=== PATIENT | female | born 2000 | race Caucasian/White ===

== ENCOUNTER → 2021-01-15 11:04 | Outpatient (BNVA) | payer OTHER, SELFPAY | PROVIDERS: PCP Internal Medicine; Visit Provider Advanced Practice Midwife ==

== ENCOUNTER 2021-02-10 14:58 | Outpatient (REF) | payer OTHER, SELFPAY ==
[2021-02-12 11:41] LABS: HBc Num1 0.17 S/CO (0.00-0.79); HBsAGNum1 0.13 S/CO (0.00-0.99); Hepatitis B Core Antibody Nonreactive (Nonreactive); Hepatitis B Surface Antigen Negative (Negative)
[2021-02-13 08:39] LABS: HBS Num1 0.23 mIU/mL (0-7.99); ~Hepatitis B Surface Antibody NONREACTIVE (Nonreactive)
== END 2021-02-10 14:59 | disposition home or self-care (01) ==
LOC: HO.HMGCLDS 14:58
PROVIDERS: PCP Internal Medicine; Visit Provider Nurse Practitioner Family
DX: Z02.0 Encounter for examination for admission to educational institution (principal)
CPT/HCPCS: 36415; 86704; 86706; 86787; 87340

== ENCOUNTER 2021-02-17 09:46 | Outpatient (REF) | payer OTHER, SELFPAY ==
[2021-02-20 17:22] LABS: TS Negative Control Passed; TS Panel A 4; TS Panel B 12; TS Positive Control Passed; TSpotTB POSITIVE (SeeBelow)
== END 2021-02-17 09:47 | disposition home or self-care (01) ==
LOC: HO.WFDLDS 09:46
PROVIDERS: Visit Provider Nurse Practitioner Family
DX: Z11.1 Encounter for screening for respiratory tuberculosis (principal)
CPT/HCPCS: 36415; 86481

== ENCOUNTER 2021-02-17 15:15 | Outpatient (REF) | payer OTHER, SELFPAY ==
[2021-02-18 09:19] LABS: CT PCR NOT DETECTED (Not Detect.); NG PCR NOT DETECTED (Not Detect.)
== END 2021-02-17 15:16 | disposition home or self-care (01) ==
LOC: HO.LAB 15:15
PROVIDERS: Visit Provider Advanced Practice Midwife
DX: Z11.3 Encounter for screening for infections with a predominantly sexual mode of transmission (principal); Z20.2 Contact with and (suspected) exposure to infections with a predominantly sexual mode of transmission
CPT/HCPCS: 87491; 87591

== ENCOUNTER 2021-02-26 10:45 | Outpatient (REF) | payer OTHER, SELFPAY ==
--- NOTE | ~2021-02-26 | XR_ITS ---
EXAMINATION: XR CHEST CLINICAL INFORMATION: Positive TB test COMPARISON: None TECHNIQUE: Frontal view of the chest was obtained. FINDINGS: No significant abnormality is noted involving the heart, lungs, mediastinum, bony thorax or soft tissues. XR/XR chest 1V IMPRESSION: Unremarkable examination.
== END 2021-02-26 10:46 | disposition home or self-care (01) ==
LOC: HO.XRAY 10:45
PROVIDERS: PCP Internal Medicine; Visit Provider Nurse Practitioner Family
DX: R76.11 Nonspecific reaction to tuberculin skin test without active tuberculosis (principal)
CPT/HCPCS: 71045

== ENCOUNTER → 2021-07-07 11:57 | Outpatient (BNVA) | payer OTHER, SELFPAY | PROVIDERS: PCP Internal Medicine; Visit Provider Advanced Practice Midwife ==

== ENCOUNTER → 2021-07-28 08:36 | Outpatient (BNVA) | payer OTHER, SELFPAY | PROVIDERS: PCP Internal Medicine; Visit Provider Advanced Practice Midwife ==

== ENCOUNTER → 2021-08-04 10:49 | Outpatient (BNVA) | payer OTHER, SELFPAY | PROVIDERS: PCP Internal Medicine; Visit Provider Advanced Practice Midwife | DX: Z30.013 Encounter for initial prescription of injectable contraceptive (principal) | CPT/HCPCS: 96372 ==

== ENCOUNTER → 2022-01-15 09:04 | Outpatient (BNVA) | payer OTHER, SELFPAY | PROVIDERS: PCP Internal Medicine; Visit Provider Advanced Practice Midwife | DX: Z30.013 Encounter for initial prescription of injectable contraceptive (principal) | CPT/HCPCS: 96372 ==

== ENCOUNTER 2022-01-26 14:37 | Outpatient (REF) | payer OTHER, SELFPAY ==
[2022-01-27 03:06] LABS: CT PCR DETECTED (Not Detect.); NG PCR NOT DETECTED (Not Detect.)
[2022-01-27 09:15] LABS: BV Int Neg Control Negative (Negative); BV Int Pos Control Positive (Positive)
== END 2022-01-26 14:38 | disposition home or self-care (01) ==
LOC: HO.LAB 14:37
PROVIDERS: Visit Provider Advanced Practice Midwife
DX: Z11.3 Encounter for screening for infections with a predominantly sexual mode of transmission (principal)
CPT/HCPCS: 87480; 87491; 87510; 87591; 87660

== ENCOUNTER 2022-03-19 12:16 | Outpatient (REF) | payer OTHER, SELFPAY ==
[2022-03-22 03:42] LABS: ~Hepatitis B Surface Antibody REACTIVE (Nonreactive); ~Hepatitis C Antibody Nonreactive (Nonreactive)
[2022-03-23 21:06] LABS: TS Negative Control Passed; TS Panel A 2; TS Panel B 1; TS Positive Control Passed; TSpotTB Negative (Negative)
== END 2022-03-19 12:17 | disposition home or self-care (01) ==
LOC: HO.MANLDS 12:16
PROVIDERS: Visit Provider Physician Assistant
DX: Z11.1 Encounter for screening for respiratory tuberculosis (principal)
CPT/HCPCS: 36415; 86481; 86706; 86803

== ENCOUNTER 2022-04-02 08:42 | Outpatient (REF) | payer OTHER, SELFPAY ==
[2022-04-02 15:11] LABS: CT PCR NOT DETECTED (Not Detect.); NG PCR NOT DETECTED (Not Detect.)
== END 2022-04-02 08:43 | disposition home or self-care (01) ==
LOC: HO.LAB 08:42
PROVIDERS: Visit Provider Advanced Practice Midwife
DX: Z30.42 Encounter for surveillance of injectable contraceptive (principal); Z20.2 Contact with and (suspected) exposure to infections with a predominantly sexual mode of transmission
CPT/HCPCS: 87491; 87591; 96372

== ENCOUNTER → 2023-02-10 14:48 | Outpatient (BNVA) | payer OTHER, SELFPAY | PROVIDERS: PCP Internal Medicine; Visit Provider Advanced Practice Midwife | DX: Z30.42 Encounter for surveillance of injectable contraceptive (principal) | CPT/HCPCS: 96372 ==

== ENCOUNTER 2023-02-24 12:51 | Outpatient (REF) | payer OTHER, SELFPAY ==
[2023-02-25 11:35] LABS: CT PCR NOT DETECTED (Not Detect.); NG PCR NOT DETECTED (Not Detect.)
== END 2023-02-24 12:52 | disposition home or self-care (01) ==
LOC: HO.LNP 12:51
PROVIDERS: PCP Internal Medicine; Visit Provider Advanced Practice Midwife
DX: Z01.419 Encounter for gynecological examination (general) (routine) without abnormal findings (principal); Z20.2 Contact with and (suspected) exposure to infections with a predominantly sexual mode of transmission
CPT/HCPCS: 0353U; 88142

== ENCOUNTER 2023-02-24 12:51 | Outpatient (AMB) | payer OTHER, SELFPAY ==
--- NOTE | 2023-02-24 12:57 | A.OFFVIS_ITS ---
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 Scribed for MARGARET Waggoner by Debbie Bowens emergency medical tech, on 02/24/2023 at 1:11 pm EST. Knit Goods Washer Required: No Information Interpreted: non-clinical & clinical C D Area Supervisor: C D Area Supervisor Present (Aidyn) Allergies No Known Allergies Allergy (Verified 02/24/23 13:01) Is last menstrual period known: No (Depo) Post menopausal: No HPI HPI Comments History of Present Illness Details She is a premenopausal woman presenting for annual exam. She admits to eating healthy and tries to stay active with exercise. Currently sexually active. Uses Depo-Provera for BC, happy on Depo Provera. Denies vaginal itching and irritation. STD screening offered; she accepts. STD blood work offered; she declines. Denies family hx of breast, colon and ovarian cancer. This is her first pap smear. 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 Patient denies any contraindications to control such as tobacco use, migraines with aura, high blood pressure, liver disease, blood clotting disorders KEHINDE+, DVT, and Lupus. She denies smoking. 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[employer] Sexual orientation: Straight/Heterosexual Gender identity: Female Female Reproductive History Menstrual Age of Menarche: 15 Duration of menses: 3-5 days control method: progesterone injection Total pregnancies: 0 Physical Exam Vital Signs: Last Vital Signs BP 110/62 02/24/23 12:58 BMI result Body Mass Index 19.3 Const General: cooperative, healthy appearing, no acute distress, well developed and alert Orientation/consciousness: patient oriented x3 HEENT Head: Yes normal to inspection Eyes General: appearance normal, both eyes and all related structures Neck Neck: Yes normal visual inspection Thyroid: Thyroid normal Chest Chest palpation & inspection: normal inspection of the chest Breast/axilla inspection: normal inspection of the breasts (no puckering, dimpling, peau de orange, retraction, discharge, masses) Breast/axilla palpation: normal palpation of the breasts Resp Effort & Inspection: normal respiratory effort GI Inspection: Yes normal to inspection Palpation (GI): Soft to palpation (to palpation) Rectal Exam - Female: deferred General: Yes bladder normal to inspection External Female Exam: normal external appearance and normal appearance of the urethra Speculum Exam - Vagina: normal appearance of the vagina, normal palpation and normal vaginal discharge Speculum Exam - Cervix: normal appearance of the cervix and normal palpation Bimanual exam- vagina & uterus: normal palpation and normal palpation Bimanual Exam- Adnexa, other: normal adnexae and no masses Skin General skin exam: no rashes or lesions noted Neuro General: patient oriented x3 Cognition (Neuro): normal cognition Extrem General: Yes normal to inspection Psych Attitude: cooperative Thought process: Normal thought process present Assessment & Plan Assessment & Plan (1) Encounter for well woman exam: Code(s): Z01.419 - Encounter for gynecological examination (general) (routine) without abnormal findings Plan: Discussed: Current recommendations for pap smears per ASCCP guidelines Breast awareness and periodic self breast exams. Maintaining a healthy lifestyle including a well balanced diet and routine exercise. BV testing and GC/CT panel done today. Await results and treat accordingly. 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 calcium/vit D in diet, weight bearing exercises. She was instructed to go to ER if she develops loss of vision, severe headache that does not resolve, chest pain, difficulty breathing, abdominal pain, or severe pain or tenderness in extremity or new breast lumps. She will call the office with any concerns. All of her questions and concerns were addressed to the best of my ability. RTO in one year for AG. (2) Potential exposure to STD: Code(s): Z20.2 - Contact with and (suspected) exposure to infections with a predominantly sexual mode of transmission (3) control counseling: Code(s): Z30.09 - Encounter for other general counseling and advice on contraception (4) Depot contraception: Code(s): Z30.42 - Encounter for surveillance of injectable contraceptive Orders: Orders CT NG by PCR Today Z20.2 - Contact with and (suspected) exposure to infections with a predominantly sexual mode of transmission Pap Smear Today Z01.419 - Encounter for gynecological examination (general) (routine) without abnormal findings Coding Level of Care Code Est Pt Prev Care 18-39y(66449) Diagnoses Encounter for well woman exam Z01.419 Potential exposure to STD Z20.2 control counseling Z30.09 Depot contraception Z30.42
[2023-02-24 12:58] VITALS: BP 110/62; BMI 19.3
== END 2023-02-24 13:29 | disposition home or self-care (01) ==
LOC: HO.HWS 12:51
PROVIDERS: PCP Internal Medicine; Visit Provider Advanced Practice Midwife
DX: Z01.419 Encounter for gynecological examination (general) (routine) without abnormal findings (principal); Z20.2 Contact with and (suspected) exposure to infections with a predominantly sexual mode of transmission
CPT/HCPCS: 99395

== ENCOUNTER 2023-03-15 11:00 | Outpatient (REF) | payer OTHER, SELFPAY ==
[2023-03-16 04:33] LABS: ~Hepatitis B Surface Antibody REACTIVE (Nonreactive)
[2023-03-17 17:24] LABS: TS Negative Control Passed; TS Panel A 0; TS Panel B 0; TS Positive Control Passed; TSpotTB Negative (Negative)
== END 2023-03-15 11:01 | disposition home or self-care (01) ==
LOC: HO.MANLDS 11:00
PROVIDERS: Visit Provider Physician Assistant
DX: Z01.84 Encounter for antibody response examination (principal)
CPT/HCPCS: 36415; 86481; 86706

== ENCOUNTER 2023-09-29 12:39 | Outpatient (AMB) | payer OTHER, SELFPAY ==
--- NOTE | 2023-09-29 13:04 | AM.OFFVISNUR ---
Intake Vital Signs 09/29/23 13:04 Height 5 ft 7 in Intake Visit Reasons: DEPO Allergies No Known Allergies Allergy (Verified 02/24/23 13:01) Nursing Note Fannie is here for her Depo-Provera inj. Her last depo-Provera inj was at [facility] on 07/14[facility]23. Pt brought documentation which was scanned into her chart. She denies any problems with the Depo_provera inj. Follow up in 12 wks. Office Procedures Depo Questionnaire If YES to any of the following questions, please consult a provider. Date of last injection: 07/12/23 Date of last gynecology exam: 02/24/23 Menstrual pattern since last injection has been: Not Applicable Irregular bleeding?: No Breast lumps or other breast changes?: No Changes in weight or appetite?: No Depression or changes in mood?: No Abnormal hair growth or loss?: No Skin problems (rash, acne, discoloration)?: No Pain at the injection site?: No Headaches?: No Nervousness?: No Abdominal pain or cramping?: No Dizziness or nausea?: No Fatigue or weakness?: No Decrease in sexual drive?: No Chest pain or shortness of breath?: No Swelling in arms or legs?: No Form completed by?: Emerita Cha LPN Office Meds Depo-Provera 150 mg/mL intramuscular syringe Performing Provider: Shilpa Cintron CNM Performing Location[place] [facility] [place] [facility] Administered by: Olga Cha LPN on 09/29/23 13:04 Dose Route Admin Location Dispensed Lot Number Expiration Date [facility] Information Security Associate 150 mg IM Left deltoid 1 mL [id number] 11/05/25 20986-719-76 [facility] Coding Level of Care Code Established Pt Est Pt Level 1 (23568) Patient Type Established History Problem Focused Exam Problem Focused Medical Decision Making Straight Forward Time Spent (min) 20 Assessment & Plan Assessment & Plan Orders: Orders AMB Medroxyprogesterone Injection Patient Supplied Today Z30.019 - Encounter for initial prescription of contraceptives, unspecified
== END 2023-09-29 12:52 | disposition home or self-care (01) ==
LOC: HO.HWS 12:40
PROVIDERS: PCP Internal Medicine; Visit Provider Advanced Practice Midwife
DX: Z30.019 Encounter for initial prescription of contraceptives, unspecified (principal)

== ENCOUNTER → 2023-09-29 12:39 | Outpatient (BNVA) | payer OTHER, SELFPAY | PROVIDERS: PCP Internal Medicine; Visit Provider Advanced Practice Midwife | DX: Z30.42 Encounter for surveillance of injectable contraceptive (principal) | CPT/HCPCS: 96372; 99211; J1050 ==

== ENCOUNTER 2023-12-21 10:46 | Outpatient (AMB) | payer OTHER, SELFPAY ==
[2023-12-21 11:24] VITALS: BMI 18.2
--- NOTE | 2023-12-21 11:24 | AM.OFFVISNUR ---
Intake Vital Signs 12/21/23 11:24 Height 5 ft 7 in Weight 52.673 kg BMI 18.2 Intake Visit Reasons: DEPO Allergies No Known Allergies Allergy (Verified 02/24/23 13:01) Nursing Note Fannie is here for her scheduled Depo-Provera inj. 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 Pt has AG scheduled for February 2024. Follow up in 12 weeks for next inj. Office Procedures Depo Questionnaire If YES to any of the following questions, please consult a provider. Date of last injection: 09/29/23 Date of last menstrual period: 12/07/23 Date of last gynecology exam: 02/24/23 Menstrual pattern since last injection has been: Light Irregular bleeding?: No Breast lumps or other breast changes?: No Changes in weight or appetite?: No Depression or changes in mood?: No Abnormal hair growth or loss?: No Skin problems (rash, acne, discoloration)?: No Pain at the injection site?: No Headaches?: No Nervousness?: No Abdominal pain or cramping?: No Dizziness or nausea?: No Fatigue or weakness?: No Decrease in sexual drive?: No Chest pain or shortness of breath?: No Swelling in arms or legs?: No Any other problems or concerns?: none voiced Form completed by?: Emerita toribio LPN Office Meds Depo-Provera 150 mg/mL intramuscular syringe Performing Provider: Shilpa Cintron CNM Performing Location: [facility] [place] [facility] Administered by: Olga Toribio LPN on 12/21/23 11:32 Dose Route Admin Location Dispensed Lot Number Expiration Date [facility] Screening Nurse 150 mg IM left deltoid 1 mL [id number] 08/07/25 [address]-2 [facility] Coding Level of Care Code Established Pt Est Pt Level 1 (07989) Patient Type Established History Problem Focused Exam Problem Focused Medical Decision Making Straight Forward Time Spent (min) 20 Assessment & Plan Assessment & Plan Orders: Orders AMB Medroxyprogesterone Injection Patient Supplied Today Z30.019 - Encounter for initial prescription of contraceptives, unspecified Medications: New Depo-Provera (medroxyprogesterone) 150 mg IM ONCE 1 mL 0RF NS Z30.019 - Encounter for initial prescription of contraceptives, unspecified
== END 2023-12-21 11:03 | disposition home or self-care (01) ==
PROVIDERS: PCP Internal Medicine; Visit Provider Advanced Practice Midwife
DX: Z30.019 Encounter for initial prescription of contraceptives, unspecified (principal)

== ENCOUNTER → 2023-12-21 10:46 | Outpatient (BNVA) | payer OTHER, SELFPAY | PROVIDERS: PCP Internal Medicine; Visit Provider Advanced Practice Midwife | DX: Z30.42 Encounter for surveillance of injectable contraceptive (principal) | CPT/HCPCS: 96372; 99211; J1050 ==

== ENCOUNTER 2024-03-14 10:37 | Outpatient (AMB) | payer OTHER, SELFPAY ==
[2024-03-14 11:20] VITALS: BMI 18.3
--- NOTE | 2024-03-14 11:20 | AM.OFFVISNUR ---
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 No c/o today, no new medical diagnoses, and no new medications. See Depo questionnaire. Pt tolerated injection well. She will schedule her next injection in 12 weeks. Pt is scheduled for AG 03/22/24. Pt verbalizes understanding and agrees with plan. No further questions. Office Procedures Depo Questionnaire If YES to any of the following questions, please consult a provider. Date of last injection: 12/21/23 Date of last gynecology exam: 02/24/23 Menstrual pattern since last injection has been: Not Applicable Irregular bleeding?: No Breast lumps or other breast changes?: No Changes in weight or appetite?: No Depression or changes in mood?: No Abnormal hair growth or loss?: No Skin problems (rash, acne, discoloration)?: No Pain at the injection site?: No Headaches?: No Nervousness?: No Abdominal pain or cramping?: No Dizziness or nausea?: No Fatigue or weakness?: No Decrease in sexual drive?: No Chest pain or shortness of breath?: No Swelling in arms or legs?: No Form completed by?: Judi De Anda RN Office Meds Depo-Provera 150 mg/mL intramuscular syringe Performing Provider: Shilpa Cintron CNM Performing Location: [facility] [place] [facility] Administered by: Judi De Anda on 03/14/24 11:23 Dose Route Admin Location Dispensed Lot Number Expiration Date [facility] [employer] 150 mg IM left deltoid 1 mL [id number] 10/05/25 [address]-5 [facility] Assessment & Plan Assessment & Plan Orders: Orders AMB Medroxyprogesterone Injection Patient Supplied Today Z30.42 - Encounter for surveillance of injectable contraceptive Medications: New Depo-Provera (medroxyprogesterone) 150 mg IM ONCE 1 mL 0RF NS Z30.42 - Encounter for surveillance of injectable contraceptive
== END 2024-03-14 11:04 | disposition home or self-care (01) ==
LOC: HO.HWS 10:37
PROVIDERS: PCP Internal Medicine; Visit Provider Advanced Practice Midwife
DX: Z30.42 Encounter for surveillance of injectable contraceptive (principal)

== ENCOUNTER → 2024-03-14 10:37 | Outpatient (BNVA) | payer OTHER, SELFPAY | PROVIDERS: PCP Internal Medicine; Visit Provider Advanced Practice Midwife | DX: Z30.42 Encounter for surveillance of injectable contraceptive (principal) | CPT/HCPCS: 96372; 99211; J1050 ==

== ENCOUNTER 2024-03-22 13:16 | Outpatient (AMB) | payer OTHER, SELFPAY ==
[2024-03-22 13:17] VITALS: BP 106/60; BMI 18.0
--- NOTE | 2024-03-22 13:17 | MHC.OFFVIS ---
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 Doing well with no concerns. She tries to eat healthy and stays active with exercise. No bleeding on Depo, doing well wants to continue. She denies any contraindications to control such as: migraines with aura, history of DVT or pulmonary emboli, high blood pressure, liver disease, thrombolic disorders, Lupus, +KEHINDE, breast cancer, or smoking. Currently is sexually active. She denies vaginal itching and irritation. STI screening offered; she accepts. Denies family history of breast, ovarian or colon cancer. Last pap smear 2022, negative. 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 Sexual orientation: Straight/Heterosexual Gender identity: Female Female Reproductive History Menstrual Age of Menarche: 15 control method: progesterone injection (Depo 03/14/24) Total pregnancies: 0 Date of last pap smear: 02/24/23 (neg) Review of Systems Const All systems reviewed & are unremarkable except as noted in HPI and below Reports as per HPI Eyes Reports no additional complaints ENT Reports no additional complaints Card Reports no additional complaints Resp Reports no additional complaints GI Reports as per HPI and Reports no additional complaints Reports as per HPI Musc Reports no additional complaints Skin/Breast Reports as per HPI Neuro Reports no additional complaints Psych Reports no additional complaints Endo Reports no additional complaints Benjamin/Lymph Reports no additional complaints Aller/Immun Reports no additional complaints Physical Exam Vital Signs: Last Vital Signs BP 106/60 03/22/24 13:17 BMI result Body Mass Index 18.0 Const General: cooperative, healthy appearing, no acute distress, well developed and alert Orientation/consciousness: patient oriented x3 HEENT Head: Yes normal to inspection Eyes General: appearance normal, both eyes and all related structures Neck Neck: Yes normal visual inspection Thyroid: Thyroid normal Chest Other: Small, rounded, nontender left breast lump 07:00 o'clock Chest palpation & inspection: normal inspection of the chest and other (no puckering, dimpling, peau de orange, retraction, discharge, masses) Breast/axilla inspection: normal inspection of the breasts Breast/axilla palpation: normal palpation of the breasts Resp Effort & Inspection: normal respiratory effort GI Inspection: Yes normal to inspection Palpation (GI): Soft to palpation Rectal Exam - Female: deferred Other: Tense with exam General: Yes bladder normal to palpation External Female Exam: normal external appearance and normal appearance of the urethra Speculum Exam - Vagina: normal appearance of the vagina, normal palpation and normal vaginal discharge Speculum Exam - Cervix: normal appearance of the cervix and normal palpation Bimanual exam- vagina & uterus: normal bimanual exam, normal palpation, uterine size normal, bladder normal to palpation, normal palpation and non-tender Bimanual Exam- Adnexa, other: no masses Skin General skin exam: no rashes or lesions noted Rashes: no rashes Neuro General: patient oriented x3 Cognition (Neuro): normal cognition Extrem General: Yes normal to inspection Psych Attitude: cooperative Thought process: Normal thought process present Assessment & Plan Assessment & Plan (1) Encounter for well woman exam with routine gynecological exam: Code(s): Z01.419 - Encounter for gynecological examination (general) (routine) without abnormal findings Category: Medical (2) Surveillance for Depo-Provera contraception: Code(s): Z30.42 - Encounter for surveillance of injectable contraceptive Category: Medical (3) Breast lump on left side at 7 o'clock position: Code(s): N63.24 - Unspecified lump in the left breast, lower inner quadrant Plan Discussed: Current recommendations for pap smears per ASCCP guidelines. Breast awareness and periodic breast exams. Ultrasound for left breast lump at 07:00 o'clock, follow up pending results. Variations in breast findings, causes. Maintain a healthy lifestyle including a well balanced diet and routine exercise. Long-term Depo use and effects on bone density, recommended continued weight-bearing exercise adequate dietary sources of calcium, when discontinuing Depo-Provera bone density usually returns to baseline. Warnings for Depo and when to notify the office or discontinue use. Use condoms for STI and prevention. Declines STD blood work. Patient verbalizes understanding and agrees to the plan of care. She was given opportunity to ask questions and all questions were answered to the best of my ability. 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 This note is constructed using voice recognition software. While every effort has been made to ensure accuracy, planning assistant errors may have been included. Orders: Orders CT NG by PCR Today Z20.2 - Contact with and (suspected) exposure to infections with a predominantly sexual mode of transmission US breast LT complete Today N63.24 - Unspecified lump in the left breast, lower inner quadrant Medications: Refilled medroxyprogesterone (Depo-Provera) 150 mg IM [id number] 1 mL 4RF Coding Level of Care Code Est Pt Prev Care 18-39y(46594) Diagnoses Encounter for well woman exam with routine gynecological exam Z01.419 Surveillance for Depo-Provera contraception Z30.42 Breast lump on left side at 7 o'clock position N63.24
== END 2024-03-22 14:06 | disposition home or self-care (01) ==
PROVIDERS: PCP Internal Medicine; Visit Provider Advanced Practice Midwife
DX: Z01.419 Encounter for gynecological examination (general) (routine) without abnormal findings (principal); Z30.42 Encounter for surveillance of injectable contraceptive; N63.24 Unspecified lump in the left breast, lower inner quadrant
CPT/HCPCS: 99395

== ENCOUNTER 2024-03-22 13:16 | Outpatient (REF) | payer OTHER, SELFPAY ==
[2024-03-22 17:43] LABS: CT PCR NOT DETECTED (Not Detect.); NG PCR NOT DETECTED (Not Detect.)
== END 2024-03-22 13:17 | disposition home or self-care (01) ==
LOC: HO.LNP 13:16
PROVIDERS: PCP Internal Medicine; Visit Provider Advanced Practice Midwife
DX: Z20.2 Contact with and (suspected) exposure to infections with a predominantly sexual mode of transmission (principal)
CPT/HCPCS: 87491; 87591

== ENCOUNTER 2024-04-04 12:51 | Outpatient (REF) | payer OTHER, SELFPAY ==
--- NOTE | ~2024-04-04 | US_ITS ---
EXAMINATION: US DIAGNOSTIC ULTRASOUND BREAST, LEFT CLINICAL INFORMATION: Palpable lump 7:00 axis felt by patient's clinician. 23-year-old female. COMPARISON: None available. TECHNIQUE: Ultrasound of the left breast is performed with real-time jones scale imaging and color Doppler. Attention was given to the lower inner quadrant to include the area of palpable concern. FINDINGS: There is dense breast tissue present. There is no suspicious mass, suspicious shadowing, architectural distortion, or cystic abnormality identified. Only normal dense breast tissue is identified in the lower inner quadrant. Results are provided to the patient at time of visit by the technologist. US/US breast LT limited mamm only IMPRESSION: No findings suspicious for malignancy left breast. No ultrasonographic correlate to the region of palpable concern 7:00 axis. Recommend clinical management and follow-up. ASSESSMENT: BI-RADS 1: Negative RECOMMENDATION: 1. Patient should be managed based on the clinical impression. 2. Otherwise, routine annual screening mammography at age 41. This patient's information was entered into a reminder system with a target due date for their next mammogram. Electronically signed by: Jackson Hutchins MD 04/04/2024 02:07 PM EDT
== END 2024-04-04 12:52 | disposition home or self-care (01) ==
LOC: HO.MAMMO 12:51
PROVIDERS: PCP Internal Medicine; Visit Provider Advanced Practice Midwife
DX: N63.24 Unspecified lump in the left breast, lower inner quadrant (principal)
CPT/HCPCS: 76642

== ENCOUNTER → 2024-04-04 13:00 | Outpatient (BNV) | payer OTHER, SELFPAY | PROVIDERS: PCP Internal Medicine; Visit Provider Radiology Diagnostic Radiology | DX: N63.24 Unspecified lump in the left breast, lower inner quadrant (principal) | CPT/HCPCS: 76642; 77065 ==

== ENCOUNTER 2024-05-09 10:21 | Outpatient (AMB) | payer OTHER, SELFPAY ==
--- NOTE | 2024-05-09 10:30 | MHC.OFFVIS ---
Vital Signs 05/09/24 10:31 Height 5 ft 7 in Weight 117 lb 6 oz BMI 18.4 BP 102/68 Blood Pressure Location Rt brachial Position Sitting Intake Visit Reasons: Room 4 , breast US follow up Technical Support Intern Required: No Allergies No Known Allergies Allergy (Verified 03/22/24 13:17) Is last menstrual period known: Yes (none due to depo) Post menopausal: No Patient : No HPI Comments Details: Patient is here today for a follow up breast ultrasound due to a previous exam noted a small breast lump on the left side at 07:00 o'clock. She does not feel anything in that area today, denies any breast changes or pain. 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 Sexual orientation: Straight/Heterosexual Gender identity: Female Female Reproductive History Menstrual Age of Menarche: 15 control method: progesterone injection Total pregnancies: 0 Review of Systems Const All systems reviewed & are unremarkable except as noted in HPI and below Reports no additional complaints Skin/Breast Reports system reviewed and no additional complaints, except as documented and Reports as per HPI Physical Exam Vital Signs: Last Vital Signs BP 102/68 05/09/24 10:31 BMI result Body Mass Index 18.4 Const General: cooperative, healthy appearing and no acute distress Chest Breast/axilla inspection: normal inspection of the breasts and normal inspection of the axillae Breast/axilla palpation: normal palpation of the breasts Skin General skin exam: no rashes or lesions noted Results Reviewed Results Reviewed: [facility] [address] [place] [address] Ultrasound Report Signed Patient: Fannie Singh MR#: [id number] : 2000 Acct:[id number] Age/Sex: 23 / F ADM Date: 04/04/24 Loc: HO.MAMMO Attending Dr: Shilpa Cintron CNM Ordering Physician: Shilpa Cintron CNM Date of Service: 04/04/24 Procedure(s): US breast LT limited mamm only Accession Number(s): [id number] cc: Nito Jackson MD; Shilpa Cintron CNM~ EXAMINATION: US DIAGNOSTIC ULTRASOUND BREAST, LEFT CLINICAL INFORMATION: Palpable lump 7:00 axis felt by patient's clinician. 23-year-old female. COMPARISON: None available. TECHNIQUE: Ultrasound of the left breast is performed with real-time jones scale imaging and color Doppler. Attention was given to the lower inner quadrant to include the area of palpable concern. FINDINGS: There is dense breast tissue present. There is no suspicious mass, suspicious shadowing, architectural distortion, or cystic abnormality identified. Only normal dense breast tissue is identified in the lower inner quadrant. Results are provided to the patient at time of visit by the technologist. US/US breast LT limited mamm only IMPRESSION: No findings suspicious for malignancy left breast. No ultrasonographic correlate to the region of palpable concern 7:00 axis. Recommend clinical management and follow-up. ASSESSMENT: BI-RADS 1: Negative RECOMMENDATION: 1. Patient should be managed based on the clinical impression. 2. Otherwise, routine annual screening mammography at age 41. This patient's information was entered into a reminder system with a target due date for their next mammogram. 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 Advised to just monitor for any breast pain or concerns. Depo appointment is due May 26 an annual exam scheduled for 2024. All of her questions and concerns were addressed to the best of my ability and shared decision making. She is agreeable to the plan of care. This note is constructed using voice recognition software. While every effort has been made to ensure accuracy, rn international errors may have been included. Coding Level of Care Code Est Pt Level 3 (82506) Diagnoses Encounter to discuss test results Z71.2
[2024-05-09 10:31] VITALS: BP 102/68; BMI 18.4
== END 2024-05-09 11:24 | disposition home or self-care (01) ==
PROVIDERS: PCP Internal Medicine; Visit Provider Advanced Practice Midwife
DX: Z71.2 Person consulting for explanation of examination or test findings (principal)
CPT/HCPCS: 99213

== ENCOUNTER → 2024-05-09 10:21 | Outpatient (BNVA) | payer OTHER, SELFPAY | PROVIDERS: PCP Internal Medicine; Visit Provider Advanced Practice Midwife ==

== ENCOUNTER 2024-05-30 08:51 | Outpatient (AMB) | payer OTHER, SELFPAY ==
[2024-05-30 09:15] VITALS: BMI 18.5
--- NOTE | 2024-05-30 09:15 | AM.OFFVISNUR ---
Vital Signs 05/30/24 09:15 Height 5 ft 7 in Weight 118 lb 2 oz BMI 18.5 Intake Visit Reasons: depo Allergies No Known Allergies Allergy (Verified 03/22/24 13:17) Nursing Note Fannie is here today for her scheduled Depo-Provera inj. No c/o follow up in 12 wks. Office Procedures Depo Questionnaire If YES to any of the following questions, please consult a provider. Date of last injection: 03/14/24 Date of last gynecology exam: 03/22/24 Menstrual pattern since last injection has been: Not Applicable Irregular bleeding?: No Breast lumps or other breast changes?: No Changes in weight or appetite?: No Depression or changes in mood?: No Abnormal hair growth or loss?: No Skin problems (rash, acne, discoloration)?: No Pain at the injection site?: No Headaches?: No Nervousness?: No Abdominal pain or cramping?: No Dizziness or nausea?: No Fatigue or weakness?: No Decrease in sexual drive?: No Chest pain or shortness of breath?: No Swelling in arms or legs?: No Form completed by?: Emerita Cha LPN Office Meds Depo-Provera 150 mg/mL intramuscular syringe Performing Provider: Shilpa Cintron CNM Performing Location[place] [facility] [place] [facility] Administered by: Olga Cha LPN on 05/30/24 09:15 Dose Route Admin Location Dispensed Lot Number Expiration Date [facility] Bone Drier Operator 150 mg IM rt. deltoid 1 mL [id number] 01/05/26 56698-110-24 Espinoza Assessment & Plan Assessment & Plan Orders: Orders AMB Medroxyprogesterone Injection Patient Supplied Today Z30.42 - Encounter for surveillance of injectable contraceptive Medications: New Depo-Provera (medroxyprogesterone) 150 mg IM ONCE 1 mL 0RF NS Z30.42 - Encounter for surveillance of injectable contraceptive
== END 2024-05-30 09:02 | disposition home or self-care (01) ==
LOC: HO.HWS 08:51
PROVIDERS: PCP Internal Medicine; Visit Provider Advanced Practice Midwife
DX: Z30.42 Encounter for surveillance of injectable contraceptive (principal)

== ENCOUNTER → 2024-05-30 08:51 | Outpatient (BNVA) | payer OTHER, SELFPAY | PROVIDERS: PCP Internal Medicine; Visit Provider Advanced Practice Midwife | DX: Z30.42 Encounter for surveillance of injectable contraceptive (principal) | CPT/HCPCS: 96372; 99211; J1050 ==

== ENCOUNTER 2024-08-21 08:48 | Outpatient (AMB) | payer OTHER, SELFPAY ==
[2024-08-21 09:09] VITALS: BMI 18.7
--- NOTE | 2024-08-21 09:09 | AM.OFFVISNUR ---
Vital Signs 08/21/24 09:09 Height 5 ft 7 in Weight 119 lb 2 oz BMI 18.7 Intake Visit Reasons: DEPO Allergies No Known Allergies Allergy (Verified 03/22/24 13:17) Nursing Note Fannie is here today for her scheduled Depo-provera INJ. No c/o follow up in 12 wks for next inj. Office Procedures Depo Questionnaire If YES to any of the following questions, please consult a provider. Date of last injection: 05/30/24 Date of last gynecology exam: 03/22/24 Menstrual pattern since last injection has been: Not Applicable Irregular bleeding?: No Breast lumps or other breast changes?: No Changes in weight or appetite?: No Depression or changes in mood?: No Abnormal hair growth or loss?: No Skin problems (rash, acne, discoloration)?: No Pain at the injection site?: No Headaches?: No Nervousness?: No Abdominal pain or cramping?: No Dizziness or nausea?: No Fatigue or weakness?: No Decrease in sexual drive?: No Chest pain or shortness of breath?: No Swelling in arms or legs?: No Any other problems or concerns?: none voiced Form completed by?: Emerita Cha LPN Office Meds Depo-Provera 150 mg/mL intramuscular syringe Performing Provider: Shilpa Cintron CNM Performing Location: [facility] [place] [facility] Administered by: Olga Cha LPN on 08/21/24 09:09 Dose Route Admin Location Dispensed Lot Number Expiration Date [facility] Focusing Machine Operator 150 mg IM 1 mL [id number] 04/07/26 36971-239-57 Espinoza Assessment & Plan Assessment & Plan Orders: Orders AMB Medroxyprogesterone Injection Patient Supplied Today Z30.42 - Encounter for surveillance of injectable contraceptive Medications: New Depo-Provera (medroxyprogesterone) 150 mg IM ONCE 1 mL 0RF NS Z30.42 - Encounter for surveillance of injectable contraceptive
--- OUTSIDE RECORDS SUMMARY | 2024-08-21 09:13 | XMS_ITS | Data Portability ---
Author Organization [facility], Home Service Address [address] [place] [address] Assessment No assessment recorded. Plan of Treatment Reminders Order Date Submit Date Provider Last Modified By Organization Details Last Modified Time Details Appointments None record ed. Lab None record ed. Referral None record ed. Procedures None record ed. Surgeries None record ed. Imaging None record ed. Medication Orders None record ed. Patient TargetsNo targets recorded. Patient InstructionsNo instructions recorded. Reason for Referral None Reported. Results Created Date Observation Date Name Description Value Unit Range Abnormal Flag Note LastModifiedBy Organization Detail LastModifiedTime 04/04/2004/04/2024 US, nancy mackey No observ ation record ed. [email or web address] [facility]'[address] [place], [address], 04/04/2024 14:54:46 Result Notes None recorded. Problems Name Problem SNOMED Code Status Onset Date Resolution Date Notes Provider Name and Address Organization Details Recorded Time Palpitat ions 19069324 Active 2020 Hannah sauceda [facility] 09:46:11 Orthosta tic intolera nce 456716074 Active 2020 Hannah sauceda [facility] 09:46:44 Otitis media 26133358 Completed 202003/31/2021 PILY LINCOLN [address] [place], [address], [facility] 11:03:38 Problem Notes None recorded. Procedures Surgical History Date Name Laterality Status Provider Name and Address Organization Details Recorded Time 02/28/20 extraction of wisdom tooth completed PILY LINCOLN [address] [facility], [place], [address], [place] [facility] 03/31/2021 10:44:57 Imaging Results Imaging Date Name Status LastModified by Mary Ann cliffordion Details LastModified Time 04/04/2024 US, breast completed [email or web address] [address] [place], [address], 04/04/2024 14:54:46 Procedure Notes None recorded. Medical Equipment None Reported. Allergies No known drug allergies Medications Name Sig Start Date Stop Date Status Note LastModified by Organization Details LastModified Time Xulane 150 mcg-35 mcg/24 hr transdermal patch APPLY 1 PATCH TOPICALLY ONCE A WEEK FOR 3 WEEKS active Not Available Not Available No t Available Vitals Date Recorded Body height Body mass index (BMI) Percentile per age and sex Body mass index (BMI) Body weight Heart rate Oxygen saturation Oxygen saturation in Arterial blood by Pulse oximetry Systolic blood pressure Diastolic blood pressure Provider Name and Address Organization Details Last Updated DateTime 170.18 cm 8 % 18.3 kg/m2 63257.3 1 g 74 /min 96 % 96 % 100 mm[Hg] 60 mm[Hg] Mable Giraldo [facility] 10:29:43 Social History Question Answer Notes LastModified by Mary Annat ion Details LastModified Time Tobacco Smoking Status [facility] 03/25/2021 09:47:29 What Is Your Level Of Alcohol Consumption? None Information not available 03/31/2021 What Is Your Level Of Caffeine Consumption? Moderate Information not available 03/31/2021 What Was The Date Of Your Most Recent Tobacco Screening? 03/31/2021 [email or web address] Information not available 03/31/2021 Do You Use Any Illicit Or Recreational Drugs? No Information not available 03/31/2021 Do You Or Have You Ever Used Any Other Forms Of Tobacco Or Nicotine? No Information not available 03/31/2021 Sex: Unknown Functional Status Question Answer Note LastModified by Organization D etails LastModified Time What is your exercise level? Moderate Information not available 03/31/2021 Mental Status None recorded. Family History Relationship Description Onset Age of this Age Resolved Age Notes LastModified by Organization Details LastModified Time Paternal Grandmother Arthritis [email or web address] Not available 11:33:43 Maternal Grandfather Malignant neoplastic disease [email or web address] Not available 2020 11:34:00 Medical History No medical history recorded. Gynecological History Statement/Question Response Age at Menarche 15 Date of LMP 03/17/2021 Obstetrics History GPAL:G 0 P 0 0 0 0 Immunizations Vaccine Type Date Status Note Provider Nam e and Address Organization Details Recorded Time COVID-19, mRNA, LNP-S, PF, 30 mcg/0.3 mL dose 12/28/2020 completed Mable sauceda [facility] 03/31/2021 10:28:09 COVID-19, mRNA, LNP-S, PF, 30 mcg/0.3 mL dose 01/18/2021 completed Mable sauceda [facility] 03/31/2021 10:28:14 Past Encounters Encounter ID Performer Location Encounter Start Date Encounter Closed Date Diagnosis/Indication Diagnosis SNOMED-CT Code Diagnosis ICD10 Code Diagnosis Note [id number] PILY LINCOLN [facility] [address] [facility] [address] 03/31/2021 10:17:35 03/31/2021 14:17:47 Tuberculosis screening 309074243 Z11.1 positive plant, negative XRletter written for college Active or passive immunization 610690525 Z23 up to date per records, need to be added to our system Palpitations 02282848 R0 0.2 stable Health Concerns Section Related Observation LastModified by Organization Detai ls LastModified Time None Recorded Concern Status LastModified by Organization Details LastModified Time None Recorded Advance Directives Directive None Recorded Payers Encounter Date Sequence Insurance Name Policy Number Policy Villa Covered Member ID Villa Member ID Guarantor Name 03/31/2021 1 [employer] [place]) [id number] Barbra Singh [id number] Fannie Singh Notes Date Note Type Note Provider Name a nd Address Organization Details Recorded Time 1 text/html NPV the patient reports that she is going to nursing schoolthe patient had a positive TB test prior and had negative chest XR on 02/26/21, showed me the result on her portal on her phone, not in her records sent for paediatricsthe patient [place] [facility] can look up the records through our office her school states that need a medical clearance note for symptomsprovided a letter reviewing all symptoms and necessary screening questions associated with TB in students and healthcare workers note was printed and also sent to her portal the patient and I also reviewed all relevant health information in her medical historyeverything updated in her chart 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
== END 2024-08-21 10:19 | disposition home or self-care (01) ==
LOC: HO.HWS 08:48
PROVIDERS: PCP Internal Medicine; Visit Provider Advanced Practice Midwife
DX: Z30.42 Encounter for surveillance of injectable contraceptive (principal)

== ENCOUNTER → 2024-08-21 08:48 | Outpatient (BNVA) | payer OTHER, SELFPAY | PROVIDERS: PCP Internal Medicine; Visit Provider Advanced Practice Midwife | DX: Z30.42 Encounter for surveillance of injectable contraceptive (principal) | CPT/HCPCS: 96372; 99211; J1050 ==

== ENCOUNTER 2024-11-14 09:51 | Outpatient (AMB) | payer OTHER, SELFPAY ==
--- NOTE | 2024-11-14 10:29 | AM.OFFVISNUR ---
Vital Signs 11/14/24 10:30 Height 5 ft 7 in Weight 120 lb BMI 18.8 Intake Visit Reasons: DEPO Allergies No Known Allergies Allergy (Verified 03/22/24 13:17) Nursing Note Fannie is here today for her scheduled DEPO-Provera inj. She denies any problems or concerns. AG scheduled for 03/26/25. follow up in 12 weeks for next inj. Office Procedures Depo Questionnaire If YES to any of the following questions, please consult a provider. Date of last injection: 08/21/24 Date of last gynecology exam: 03/22/24 Menstrual pattern since last injection has been: Not Applicable Irregular bleeding?: No Breast lumps or other breast changes?: No Changes in weight or appetite?: No Depression or changes in mood?: No Abnormal hair growth or loss?: No Skin problems (rash, acne, discoloration)?: No Pain at the injection site?: No Headaches?: No Nervousness?: No Abdominal pain or cramping?: No Dizziness or nausea?: No Fatigue or weakness?: No Decrease in sexual drive?: No Chest pain or shortness of breath?: No Swelling in arms or legs?: No Form completed by?: Emerita Cha LPN Office Meds Depo-Provera 150 mg/mL intramuscular syringe Performing Provider: Shilpa Cintron CNM Performing Location: [facility] [place] [facility] Administered by: Olga Cha LPN on 11/14/24 10:30 Dose Route Admin Location Dispensed Lot Number Expiration Date [facility] Law Librarian 150 mg IM lt. deltoid 1 mL [id number] 11/05/25 36032-343-16 MYLAN Assessment & Plan Assessment & Plan Orders: Orders AMB Medroxyprogesterone Injection Patient Supplied Today Z30.42 - Encounter for surveillance of injectable contraceptive Medications: New Depo-Provera (medroxyprogesterone) 150 mg IM ONCE 1 mL 0RF NS Z30.42 - Encounter for surveillance of injectable contraceptive Coding Level of Care Code Established Pt Est Pt Level 1 (11899) Patient Type Established History Problem Focused Exam Problem Focused Medical Decision Making Straight Forward Time Spent (min) 20
[2024-11-14 10:30] VITALS: BMI 18.8
--- OUTSIDE RECORDS SUMMARY | 2024-11-14 10:50 | XMS_ITS | Data Portability ---
Author Organization [facility], Home Service Address [address] [place] [address] Assessment No assessment recorded. Plan of Treatment [...] mackey No observ ation record ed. [email or web address] [facility]'[address] [place], [address], 04/04/2024 14:54:46 Result Notes None recorded. Problems Name Problem SNOMED Code Status Onset Date Resolution Date Notes Provider Name and Address Organization Details Recorded Time Palpitat ions 50353194 Active 2020 Hannah sauceda [facility] 09:46:11 Orthosta tic intolera nce 954211195 Active 2020 Hannah sauceda [facility] 09:46:44 Otitis media 23173567 Completed 202003/31/2021 PILY LINCOLN [address] [place], [address], [facility] 11:03:38 Problem Notes None recorded. Procedures Surgical History Date Name Laterality Status Provider Name and Address Organization Details Recorded Time 02/28/20 extraction of wisdom tooth completed PILY LINCOLN [address] [facility], [place], [address], [place] [facility] 03/31/2021 10:44:57 Imaging Results Imaging Date Name Status LastModified by Mary Ann cliffordion Details LastModified Time 04/04/2024 US, breast completed [email or web address] [address] [place], [address], 04/04/2024 14:54:46 Procedure Notes None recorded. Medical [...] DateTime 170.18 cm 8 % 18.3 kg/m2 30294.3 1 g 74 /min 96 % 96 % 100 mm[Hg] 60 mm[Hg] Mable Giraldo [facility] 10:29:43 Social History Question Answer Notes LastModified by Mary Annat ion Details LastModified Time Tobacco Smoking Status [facility] 03/25/2021 09:47:29 What [...] mcg/0.3 mL dose 12/28/2020 completed Mable sauceda [facility] 03/31/2021 10:28:09 COVID-19, mRNA, LNP-S, PF, 30 mcg/0.3 mL dose 01/18/2021 completed Mable sauceda [facility] 03/31/2021 10:28:14 Past Encounters Encounter ID Performer Location Encounter Start Date Encounter Closed Date Diagnosis/Indication Diagnosis SNOMED-CT Code Diagnosis ICD10 Code Diagnosis Note [id number] PILY LINCOLN [facility] [address] [facility] [address] 03/31/2021 10:17:35 03/31/2021 14:17:47 Tuberculosis screening 437172715 Z11.1 positive plant, negative XRletter written for college Active or passive immunization 676935747 Z23 up to date per records, need to be added to our system Palpitations 25185830 R0 0.2 stable Health Concerns Section Related Observation LastModified by Organization Detai ls LastModified Time None Recorded Concern Status LastModified by Organization Details LastModified Time None Recorded Advance Directives Directive None Recorded Payers Encounter Date Sequence Insurance Name Policy Number Policy Villa Covered Member ID Villa Member ID Guarantor Name 03/31/2021 1 [employer] [place] ([facility]) [id number] Barbra Singh [id number] Fannie Singh Notes Date Note Type [...] paediatricsthe patient got the XR done from [facility], can look up the records through our [...] concerns today and doing well PILY LINCOLN [address] [place] [address], [place], [address], [facility] 03/31/2021 11:05:15 OBGyn Episode No OBEpisode recorded.
== END 2024-11-14 10:08 | disposition home or self-care (01) ==
LOC: HO.HWS 09:51
PROVIDERS: PCP Internal Medicine; Visit Provider Advanced Practice Midwife
DX: Z30.42 Encounter for surveillance of injectable contraceptive (principal)

== ENCOUNTER → 2024-11-14 09:51 | Outpatient (BNVA) | payer OTHER, SELFPAY | PROVIDERS: PCP Internal Medicine; Visit Provider Advanced Practice Midwife | DX: Z30.42 Encounter for surveillance of injectable contraceptive (principal) | CPT/HCPCS: 96372; 99211; J1050 ==

== ENCOUNTER 2025-02-07 10:48 | Outpatient (AMB) | payer OTHER, SELFPAY ==
[2025-02-07 11:07] VITALS: BMI 18.9
--- NOTE | 2025-02-07 11:07 | AM.OFFVISNUR ---
Vital Signs 02/07/25 11:07 Height 5 ft 7 in Weight 121 lb BMI 18.9 Intake Visit Reasons: DEPO Allergies No Known Allergies Allergy (Verified 03/22/24 13:17) Nursing Note Fannie is here today for her scheduled Depo-Provera inj. She denies any problems or concerns. Next AG 03/26/25. Pt to return for next Depo-Provera inj in 12 weeks. Office Procedures Depo Questionnaire If YES to any of the following questions, please consult a provider. Date of last injection: 11/14/24 Date of last gynecology exam: 03/22/24 Menstrual pattern since last injection has been: Not Applicable Irregular bleeding?: No Breast lumps or other breast changes?: No Changes in weight or appetite?: No Depression or changes in mood?: No Abnormal hair growth or loss?: No Skin problems (rash, acne, discoloration)?: No Pain at the injection site?: No Headaches?: No Nervousness?: No Abdominal pain or cramping?: No Dizziness or nausea?: No Fatigue or weakness?: No Decrease in sexual drive?: No Chest pain or shortness of breath?: No Swelling in arms or legs?: No Form completed by?: Emerita Cha LPN Office Meds Depo-Provera 150 mg/mL intramuscular syringe Performing Provider: Shilpa Cintron CNM Performing Location: [facility] [place] [facility] Administered by: Olga Cha LPN on 02/07/25 11:07 Dose Route Admin Location Dispensed Lot Number Expiration Date [facility] Hearing And Speech Assistant 150 mg IM lt. deltoid 1 mL [id number] 01/05/26 42435-452-35 MYLAN Total Dispensed Waste 1 mL 0 % Assessment & Plan Assessment & Plan Orders: Orders AMB Medroxyprogesterone Injection Patient Supplied Today Z30.42 - Encounter for surveillance of injectable contraceptive Coding Level of Care Code Established Pt Est Pt Level 1 (41124) Patient Type Established History Problem Focused Exam Problem Focused Medical Decision Making Straight Forward Time Spent (min) 20
--- OUTSIDE RECORDS SUMMARY | 2025-02-07 11:37 | XMS_ITS | Patient Health Record ---
Author Organization [facility] Address [address] [place] [address] Care Team Providers Care Security Researcher Name Role Phone Osmin Man Primary Care Provider UnaAmauri Harris Unavailable [phone] Reason For Referral No Information Problems Problem Type SNOMED Code ICD Code Onset Dates Problem Status W/U Status Risk Notes Problem Verruca plantaris (25175570) Verruca Plantaris (078.19) Active confirmed Problem Pain in limb (21002930) Pain in Limb (729.5) Active confirmed Plan Of Treatment Pending Test Test Name Order Date [id number], 1-14 12/13/2011 Insurance Providers Payer Name Payer Address Payer Phone Subscriber Number Group Number Insured Name Patient Relationship to Insured Coverage Start Date Coverage End Date Blue Benefits [address] [address] [place] [address] [id number] Barbra Singh [facility] Child - Insured has Financial Responsibility
--- OUTSIDE RECORDS SUMMARY | 2025-02-07 11:37 | XMS_ITS | Data Portability ---
Author Organization [facility] Internal Medicine, Telehealth Patient Home Address [address] [place] [address] Assessment No assessment recorded. Plan of Treatment [...] nancy mackey No observ ation record ed. [address] [place], [address], 04/04/2024 14:54:46 Result Notes None recorded. Problems Name Problem SNOMED Code Status Onset Date Resolution Date Notes Provider Name and Address Organization Details Recorded Time Palpitat ions 32905238 Active 2020 Hannah sauceda [facility] Internal Medicine 09:46:11 Orthosta tic intolera nce 219199964 Active 2020 Hannah sauceda [facility] Internal Medicine 09:46:44 Otitis media 18782389 Completed 202003/31/2021 PILY LINCOLN [address] [place], [address], [facility], [place], operated [facility] Internal Medicine 11:03:38 Problem Notes None recorded. Procedures Surgical History Date Name Laterality Status Provider Name and Address Organization Details Recorded Time 02/28/20 20 extraction of wisdom tooth completed PILY LINCOLN [address] [place] [address], [place], [address], [facility], [place], operated [facility] 03/31/2021 10:44:57 Imaging Results None recorded. Procedure Notes None recorded. Medical Equipment None Reported. Allergies No known drug allergies Medications Name Sig Start Date Stop Date Status Note LastModified by Organization Details LastModified Time Xulane 150 mcg-35 mcg/24 hr transdermal patch APPLY 1 PATCH TOPICALLY ONCE A WEEK FOR 3 WEEKS active Not Available Not Available No t Available Vitals Date Recorded Body height Body mass index (BMI) [Percentile] Per age and sex Body mass index (BMI) Body weight Heart rate Oxygen saturation Oxygen saturation in Arterial blood by Pulse oximetry Systolic And Diastolic Provider Name and Address Organization Details Last Updated DateTime 170.18 cm 8 % 18.3 kg/m2 58095.3 1 g 74 /min 96 % 96 % 100/60 mm[Hg] Mable Giraldo [facility] Internal Medicine 10:29:43 Social History Question Answer Notes LastModified by [employer] Details LastModified Time Tobacco Smoking Status Never Smoker [facility] 03/25/2021 09:47:29 What Is Your Level Of Caffeine Consumption? Moderate Information not available 03/31/2021 What Was The Date Of Your Most Recent Tobacco Screening? 03/31/2021 [email or web address] Information not available 03/31/2021 Sex: Unknown Functional Status Question Answer Note LastModified by [employer] Details LastModified Time Do you use any illicit or recreational drugs? No Information not available 03/31/2021 Do you or have you ever used any other forms of tobacco or nicotine? No Information not available 03/31/2021 What is your level of alcohol consumption? None Information not available 03/31/2021 What is your exercise level? Moderate Information [...] mcg/0.3 mL dose 12/28/2020 completed Mable sauceda [facility] Internal Medicine 03/31/2021 10:28:09 COVID-19, mRNA, LNP-S, PF, 30 mcg/0.3 mL dose 01/18/2021 completed Mable sauceda [facility] 03/31/2021 10:28:14 Past Encounters Encounter ID Performer Location Encounter Start Date Encounter Closed Date Diagnosis/Indication Diagnosis SNOMED-CT Code Diagnosis ICD10 Code Diagnosis Note [id number] Nito Jackson [facility] Internal Medicine [address] [facility] [address] 03/31/2021 10:17:35 03/31/2021 14:17:47 Tuberculosis screening 736795580 Z11.1 positive plant, negative XRletter written for college Active or passive immunization 463453623 Z23 up to date per records, need to be added to our system Palpitations 16302100 R0 0.2 stable Health Concerns Section Related Observation LastModified by Organization Detai ls LastModified Time None Recorded Concern Status LastModified by Organization Details LastModified Time None Recorded Advance Directives Directive None Recorded Payers Insurance Date Sequence Insurance Name Policy Number Policy Villa Covered Member ID Villa Member ID Guarantor Name 03/28/2021 1 [employer]UE [employer] OF [facility] [id number] Barbra Singh [id number] Fannie Singh Notes Date Note Type Note Provider Name a nd Address Organization Details Recorded Time text/html NPV 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
== END 2025-02-07 11:09 | disposition home or self-care (01) ==
PROVIDERS: PCP Internal Medicine; Visit Provider Advanced Practice Midwife
DX: Z30.42 Encounter for surveillance of injectable contraceptive (principal)

== ENCOUNTER → 2025-02-07 10:48 | Outpatient (BNVA) | payer OTHER, SELFPAY | PROVIDERS: PCP Internal Medicine; Visit Provider Advanced Practice Midwife | DX: Z30.013 Encounter for initial prescription of injectable contraceptive (principal) | CPT/HCPCS: 96372; 99211; J1050 ==

== ENCOUNTER 2025-05-01 13:42 | Outpatient (AMB) | payer OTHER, SELFPAY ==
--- NOTE | 2025-05-01 13:54 | A.OFFVIS_ITS ---
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 Currently on Depo-Provera wants to continue. She denies any contraindications to control such as: migraines with aura, history of DVT or pulmonary emboli, high blood pressure, liver disease, thrombolic disorders, Lupus, +KEHINDE, breast cancer, or smoking. Regular monthly menses. Currently is sexually active w/alf partner. She denies vaginal itching or irritation. STI screening offered; she accepts. She tries to eat healthy and stays active with exercise. Denies family history of breast, ovarian or colon cancer. Last pap smear 2022, negative. 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 Sexual orientation: Straight/Heterosexual Gender identity: Female Female Reproductive History Menstrual Age of Menarche: 15 control method: progesterone injection Total pregnancies: 0 Number of Living Children: 0 Date of last pap smear: 02/24/23 Review of Systems Const All systems reviewed & are unremarkable except as noted in HPI and below Reports as per HPI Eyes Reports no additional complaints ENT Reports no additional complaints Card Reports no additional complaints Resp Reports no additional complaints GI Reports as per HPI and Reports no additional complaints Reports as per HPI Musc Reports no additional complaints Skin/Breast Reports as per HPI Neuro Reports no additional complaints Psych Reports no additional complaints Endo Reports no additional complaints Benjamin/Lymph Reports no additional complaints Aller/Immun Reports no additional complaints Physical Exam Vital Signs: Last Vital Signs BP 98/62 05/01/25 14:02 BMI result Body Mass Index 19.1 Const General: cooperative, healthy appearing, no acute distress, well developed and alert Orientation/consciousness: patient oriented x3 HEENT Head: Yes normal to inspection Eyes General: appearance normal, both eyes and all related structures Neck Neck: Yes normal visual inspection Thyroid: Thyroid normal Chest Chest palpation & inspection: normal inspection of the chest and other (no puckering, dimpling, peau de orange, retraction, discharge, masses) Breast/axilla inspection: normal inspection of the breasts Breast/axilla palpation: normal palpation of the breasts Resp Effort & Inspection: normal respiratory effort GI Inspection: Yes normal to inspection Palpation (GI): Soft to palpation Rectal Exam - Female: deferred General: Yes bladder normal to palpation External Female Exam: normal external appearance and normal appearance of the urethra Speculum Exam - Vagina: normal appearance of the vagina, normal palpation and normal vaginal discharge Speculum Exam - Cervix: normal appearance of the cervix and normal palpation Bimanual exam- vagina & uterus: normal bimanual exam, normal palpation, uterine size normal, bladder normal to palpation, normal palpation and non-tender Bimanual Exam- Adnexa, other: no masses Skin General skin exam: no rashes or lesions noted Rashes: no rashes Neuro General: patient oriented x3 Cognition (Neuro): normal cognition Extrem General: Yes normal to inspection Psych Attitude: cooperative Thought process: Normal thought process present Office Procedures Depo Questionnaire If YES to any of the following questions, please consult a provider. Date of last injection: 02/07/25 Date of last gynecology exam: 05/01/25 Menstrual pattern since last injection has been: Not Applicable Irregular bleeding?: No Breast lumps or other breast changes?: No Changes in weight or appetite?: No Depression or changes in mood?: No Abnormal hair growth or loss?: No Skin problems (rash, acne, discoloration)?: No Pain at the injection site?: No Headaches?: No Nervousness?: No Abdominal pain or cramping?: No Dizziness or nausea?: No Fatigue or weakness?: No Decrease in sexual drive?: No Chest pain or shortness of breath?: No Swelling in arms or legs?: No Any other problems or concerns?: no concerns Form completed by?: Macy Franco LPN Office Meds Depo-Provera 150 mg/mL intramuscular syringe Performing Provider: Shilpa Cintron CNM [place] [facility] Administered by: Macy Franco LPN on 05/01/25 15:23 Dose Route Admin Location Dispensed Lot Number Expiration Date NDC 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 Breast awareness and periodic breast exams. Maintain a healthy lifestyle including a well balanced diet and routine exercise. Patient verbalizes understanding and agrees to the plan of care. She was given opportunity to ask questions and all questions were answered to the best of my ability. RTO in one year for annual obgyn nurse examination. This note is constructed using voice recognition software. While every effort has been made to ensure accuracy, harness worker errors may have been included. (2) Surveillance for Depo-Provera contraception: Code(s): Z30.42 - Encounter for surveillance of injectable contraceptive Category: Medical Plan Encouraged healthy diet with calcium vitamin-D and weight-bearing exercises. Reviewed risk for bone loss with long-term Depo use. control hormone use warnings: go to ER if and loss of vision, blindness, severe headache, chest pain or difficulty breathing, severe abdominal pain, or any pain or swelling in an extremity. The patient expressed understanding and agreement with the plan of care. All of her questions and concerns were addressed to the best of my ability. Plan Depo q.12 weeks refills sent in. Orders: Orders Bacterial Vaginosis Panel Today Z11.3 - Encounter for screening for infections with a predominantly sexual mode of transmission AMB Medroxyprogesterone Injection Patient Supplied Today Z30.42 - Encounter for surveillance of injectable contraceptive CT NG by PCR Vag/Cerv Today Z11.3 - Encounter for screening for infections with a predominantly sexual mode of transmission Coding Level of Care Code Est Pt Prev Care 18-39y(11597) Diagnoses Encounter for well woman exam with routine gynecological exam Z01.419 Surveillance for Depo-Provera contraception Z30.42
[2025-05-01 14:02] VITALS: BP 98/62; BMI 19.1
--- OUTSIDE RECORDS SUMMARY | 2025-05-01 16:07 | XMS_ITS | Data Portability ---
Author Organization [facility] Internal Medicine, Telehealth Patient Home Address [address] [place] [address] Assessment No assessment recorded. Plan of Treatment [...] Abnormal Flag Note LastModifiedBy Organization Detail LastModifiedTime 04/04/20 24 04/04/2024 [place], nancy mackey No observ ation record ed. [address] [place], [address], 04/04/2024 14:54:46 Result Notes None recorded. Problems Name Problem SNOMED Code Status Onset Date Resolution Date Notes Provider Name and Address Organization Details Recorded Time Palpitat ions 07154779 Active 2020 Hannah sauceda [facility] Internal Medicine 09:46:11 Orthosta tic intolera nce 178719034 Active 2020 Hannah sauceda [facility] Internal Medicine 09:46:44 Otitis media 61304978 Completed 202003/31/2021 PILY LINCOLN [address] [place], [address], [facility] Internal Medicine 11:03:38 Problem Notes None recorded. Procedures Surgical History Date Name Laterality Status Provider Name and Address Organization Details Recorded Time 02/28/20 20 extraction of wisdom tooth completed PILY LINCOLN [address] [place] [address], [place], [address], [facility] Internal Medicine 03/31/2021 10:44:57 Imaging Results None [...] DateTime 170.18 cm 8 % 18.3 kg/m2 45600.3 1 g 74 /min 96 % 96 % 100/60 mm[Hg] Mable Giraldo [facility] Internal Medicine 10:29:43 Social History Question Answer Notes LastModified by [employer] Details LastModified Time Tobacco Smoking Status [facility]/25/2021 09:47:29 What Is Your Level Of Caffeine Consumption? Moderate Information not available 03/31/2021 What Was The Date Of Your Most Recent Tobacco Screening? 03/31/2021 [email or web address] Information not available 03/31/2021 Sex: Unknown Functional Status Question Answer Note LastModified by [employer] Details LastModified Time Do you use any [...] mcg/0.3 mL dose 12/28/2020 completed Mable sauceda [facility] Internal Medicine 03/31/2021 10:28:09 COVID-19, mRNA, LNP-S, PF, 30 mcg/0.3 mL dose 01/18/2021 completed Mable sauceda [facility] Medicine 03/31/2021 10:28:14 Past Encounters Encounter ID Performer Location Encounter Start Date Encounter Closed Date Diagnosis/Indication Diagnosis SNOMED-CT Code Diagnosis ICD10 Code Diagnosis IMO Codes Diagnosis Note [id number] Nito Jackson [facility] Internal Medicine [address] [facility] [address] 03/31/2021 10:17:35 03/31/2021 14:17:47 Tuberculosis screening 653784835 Z11.1 positive plant, negative XRletter written for college Active or passive immunization 212396778 Z23 up to date per records, need to be added to our system Palpitations 32845314 R0 0.2 stable Health Concerns Section Related Observation LastModified by Organization Detai ls LastModified Time None Recorded Concern Status LastModified by Organization Details LastModified Time None Recorded Advance Directives Directive None Recorded Payers Insurance Date Sequence Insurance Name Policy Number Policy Villa Covered Member ID Villa Member ID Guarantor Name 03/28/2021 1 BLUE BENEFIT ADMINISTRATORS OF 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
--- OUTSIDE RECORDS SUMMARY | 2025-05-01 16:07 | XMS_ITS | Patient Health Record ---
Author Organization [facility] Address [address] [place] [address] Care Team Providers Care Unit Operator Name Role Phone Osmin Man Primary Care Provider UnaAmauri Harris Unavailable [phone] Reason For Referral No Information Problems Problem Type SNOMED Code ICD Code Onset Dates Problem Status W/U Status Risk Notes Problem Verruca plantaris (18608528) Verruca Plantaris (078.19) Active confirmed Problem Pain in limb (05611028) Pain in Limb (729.5) Active confirmed Plan Of Treatment Pending Test Test Name Order Date [id number]-Dmav, 1-14 12/13/2011 Insurance Providers Payer Name Payer Address Payer Phone Subscriber Number Group Number Insured Name Patient Relationship to Insured Coverage Start Date Coverage End Date Blue Benefits [address] [address] [place] [address] [id number] Barbra Singh [facility] Child - Insured has Financial Responsibility
== END 2025-05-02 08:16 | disposition home or self-care (01) ==
LOC: HO.HWS 13:42
PROVIDERS: PCP Internal Medicine; Visit Provider Advanced Practice Midwife
DX: Z01.419 Encounter for gynecological examination (general) (routine) without abnormal findings (principal); Z30.42 Encounter for surveillance of injectable contraceptive
CPT/HCPCS: 99395; 99459

== ENCOUNTER 2025-05-01 13:42 | Outpatient (REF) | payer OTHER, SELFPAY ==
[2025-05-01 16:47] LABS: Bacterial Vaginosis PCR NEGATIVE (Negative); Candida Group PCR NOT DETECTED (Not Detect); Candida glab krusei PCR NOT DETECTED (Not Detect); Trichomonas vaginalis PCR NOT DETECTED (Not Detect)
[2025-05-01 16:51] LABS: CT PCR NOT DETECTED (Not Detect.); NG PCR NOT DETECTED (Not Detect.)
== END 2025-05-01 13:43 | disposition home or self-care (01) ==
LOC: HO.LNP 13:42
PROVIDERS: PCP Internal Medicine; Visit Provider Advanced Practice Midwife
DX: Z01.419 Encounter for gynecological examination (general) (routine) without abnormal findings (principal); Z20.2 Contact with and (suspected) exposure to infections with a predominantly sexual mode of transmission
CPT/HCPCS: 81515; 87491; 87591; 96372; J1050